=== PATIENT | female | born 1990 | race Two or more races ===

== ENCOUNTER 2021-08-05 02:28 | Inpatient (IN) | payer OTHER ==
[2021-08-05] MEDS ORDERED: ELECTROLYTE-148 SOLN 1,000 ML IV SCH (04:45)
[2021-08-05 06:09] VITALS: BMI 29.9
[2021-08-05 06:15] LABS: BASO % 0.3 % (0-2.0); EOS % 0.2 % (0-4.5); HEMATOCRIT 31.2 % (32.4-45.2); HEMOGLOBIN 10.4 GM/dL (10.7-15.3); LYMPH % 14.2 % (8-40); MCH 28.4 pg (25.7-33.7); MCHC 33.5 g/dl (32.0-36.0); MEAN CELL VOLUME 84.8 fl (80-96); MEAN PLT VOLUME 7.9 fl (7.5-11.1); MONO % 6.3 % (3.8-10.2); PLATELET COUNT 258 10^3/uL (134-434); RBC 3.67 M/mm3 (3.60-5.2); RDW 14.3 % (11.6-15.6); WHITE BLOOD COUNT 14.1 K/mm3 (4.0-10.0)
[2021-08-05 06:30] LABS: INR 0.95 (0.83-1.09); PROTHROMBIN TIME (PATIENT) 10.6 SEC (9.7-13.0)
[2021-08-05 06:33] LABS: ACTIVATED PTT 25.4 SECONDS (25.2-36.5)
[2021-08-05 06:35] LABS: CALCIUM 8.7 mg/dL (8.5-10.1)
[2021-08-05 06:36] LABS: BLOOD UREA NITROGEN 6.4 mg/dL (7-18)
[2021-08-05 06:39] LABS: CREATININE 0.5 mg/dL (0.55-1.3)
[2021-08-05] MEDS ORDERED: OXYTOCIN 20 UNITS in 0.9% NS 20 UNIT/1,000 ML INFUS.BAG IV SCH ×2 (07:30→10:45)
[2021-08-05] MEDS ORDERED: PCA PUMP NR ONE (07:41)
[2021-08-05] MEDS ORDERED: FENTANYL/BUPIVACAINE/NS/PF - PCEA - 50 ML DISP.SYRIN EP ONE (07:42)
[2021-08-05] MEDS ORDERED: OXYTOCIN 30 UNITS in 0.9% NS 30 UNIT/500 ML INFUS.BAG IVPB ONE (07:49)
[2021-08-05] MEDS ORDERED: BUPIVACAINE HCL/PF 0.25% (2.5MG/ML) 10 ML VIAL ONE (08:28)
[2021-08-05 08:35] LABS: HIV INTERPRETATION NEGATIVE (NEGATIVE)
[2021-08-05] MEDS ORDERED: NALOXONE HCL 0.4 MG/ML VIAL IVPUSH PRN (09:13)
[2021-08-05] MEDS ORDERED: FENTANYL/BUPIVACAINE/NS/PF - PCEA - 50 ML DISP.SYRIN EP SCH (09:15)
[2021-08-05] MEDS ORDERED: OXYTOCIN 20 UNITS in 0.9% NS 20 UNIT/1,000 ML INFUS.BAG IV ONE (09:46)
[2021-08-05] MEDS ORDERED: LIDOCAINE HCL 1% PRESERVATIVE FREE - 30ML VIAL ONE (09:46)
[2021-08-05] MEDS ORDERED: IBUPROFEN 600 MG TABLET (FP) PO PRN (10:33)
[2021-08-05] MEDS ORDERED: BISACODYL 10 MG SUPP.RECT RC PRN (10:33)
[2021-08-05] MEDS ORDERED: ACETAMINOPHEN 325 MG TABLET (FP) PO PRN (10:33)
[2021-08-05] MEDS ORDERED: BENZOCAINE 28 GM HEMORRHOIDAL OINTMENT TP PRN (10:33)
[2021-08-05] MEDS ORDERED: BENZOCAINE 20% 57 GM BOTTLE TP PRN (10:33)
[2021-08-05] MEDS ORDERED: METHYLERGONOVINE MALEATE 0.2 MG/1 ML AMP IM PRN (10:33)
[2021-08-05] MEDS ORDERED: WITCH HAZEL 50% (TUCKS) 40 PAD/JAR PAD TP PRN (10:33)
[2021-08-06 11:43] LABS: BASO % 0.2 % (0-2.0); EOS % 0.4 % (0-4.5); HEMATOCRIT 30.9 % (32.4-45.2); HEMOGLOBIN 10.3 GM/dL (10.7-15.3); LYMPH % 11.8 % (8-40); MCHC 33.3 g/dl (32.0-36.0); MEAN CELL VOLUME 84.3 fl (80-96); MEAN PLT VOLUME 7.4 fl (7.5-11.1); NEUT % 81.6 % (42.8-82.8); PLATELET COUNT 246 10^3/uL (134-434); RBC 3.66 M/mm3 (3.60-5.2); RDW 14.4 % (11.6-15.6); WHITE BLOOD COUNT 14.6 K/mm3 (4.0-10.0)
[2021-08-06] MEDS ORDERED: SENNOSIDES/DOCUSATE COMBO (SENNA PLUS) TABLET (UD) PO PRN (22:00)
[2021-08-07 09:53] VITALS: BP 104/68; PULSE 63; TEMP 97.9
== END 2021-08-07 13:00 | disposition home or self-care (01) | DRG 560 ==
LOC: JDEL 02:28 → JLDR 04:30 → J3W 12:20
PROVIDERS: ADMIT Specialist; ATTEND Specialist
PROC: 10E0XZZ Delivery of Products of Conception, External Approach (ICD-10-PCS; principal; 2021-08-05)
PROC: 0W8NXZZ Division of Female Perineum, External Approach (ICD-10-PCS; 2021-08-05)
DX: O80 Encounter for full-term uncomplicated delivery (principal); Z3A.38 38 weeks gestation of pregnancy; Z37.0 Single live birth
CPT/HCPCS: 36415; 59025; 59409; 80048; 85025; 85610; 85730; 86780; 86850; 86900; 86901; 87389; C9803; U0003; U0005